=== PATIENT | male | born 1950 | race Caucasian/White ===

== ENCOUNTER 2023-03-17 13:23 | Emergency (ER) | payer MEDICARE, BC ==
[2023-03-17] MEDS ORDERED: Sodium Chloride 0.9% 10 ML Syringe FLUSH PRN (13:43)
[2023-03-17] MEDS ORDERED: Aspirin 81 MG Tab.Chew PO ONE (13:43)
[2023-03-17 13:57] LABS: BASOPHILS ABSOLUTE AUTO 0.01 K/mm3 (0.01-0.08); BASOPHILS PERCENT AUTO 0.1 % (0.1-1.2); EOSINOPHILS ABSOLUTE AUTO 0.07 K/mm3 (0.04-0.54); HEMATOCRIT 44.3 % (40.1-51.0); HEMOGLOBIN 15.5 gm/dl (13.7-17.5); LYMPHOCYTES ABSOLUTE AUTO 2.37 K/mm3 (1.32-3.57); LYMPHOCYTES PERCENT AUTO 33.3 % (21.8-53.1); MEAN CORPUSCULAR HEMOGLOBIN 32.4 pg (25.7-32.2); MEAN CORPUSCULAR VOLUME 92.7 fl (79.0-92.2); MEAN PLATELET VOLUME 9.7 fl (9.4-12.3); MONOCYTES ABSOLUTE AUTO 0.76 K/mm3 (0.30-0.82); MONOCYTES PERCENT AUTO 10.7 % (5.3-12.2); NEUTROPHILS ABSOLUTE AUTO 3.91 K/mm3 (1.78-5.38); NEUTROPHILS PERCENT AUTO 54.9 % (34.0-67.9); PLATELET COUNT,PLT 248 K/mm3 (163-337); RED BLOOD CELL COUNT 4.78 M/mm3 (4.63-6.08); WHITE BLOOD CELL COUNT,WBC 7.12 K/mm3 (4.23-9.07)
[2023-03-17 14:07] LABS: A/G RATIO 1.2 (1-2); ALANINE AMINOTRANSFERASE,ALT 23 U/L (16-63); ALBUMIN 3.7 g/dl (3.4-5.0); ALKALINE PHOSPHATASE 57 U/L (46-116); ANION GAP 10.8 (5-15); ASPARTATE AMNIOTRANSFERASE,AST 18 U/L (15-37); BILIRUBIN TOTAL 0.8 mg/dL (0.2-1.0); BLOOD UREA NITROGEN,BUN 21 mg/dL (7-18); CALCIUM 9.2 mg/dL (8.5-10.1); CARBON DIOXIDE,CO2 26 mEq/L (21-32); CHLORIDE,CL 108 mEq/L (98-107); ESTIMATED GFR 79 mL/min (>60); GLUCOSE RANDOM 91 mg/dL (70-99); POTASSIUM,K 3.8 mEq/L (3.5-5.1); PROTEIN TOTAL,TP 6.9 g/dl (6.4-8.2); SODIUM,NA 141 mEq/L (136-145); TROPONIN I HIGH SENSITIVITY 7 pg/mL (<=76)
== END 2023-03-17 15:30 | disposition home or self-care (01) ==
LOC: JD.ED 13:23
DX: R07.89 Other chest pain (principal); I10 Essential (primary) hypertension; Z79.82 Long term (current) use of aspirin; Z79.899 Other long term (current) drug therapy
CPT/HCPCS: 36415; 71045; 80053; 84484; 85025; 93005; 99285; A9270; J3490